=== PATIENT | male | born 2000 | race Native Hawaiian/Other Pacific Islander ===

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

== ENCOUNTER 2018-02-27 21:01 | Inpatient (IN) ==
[2018-02-27] MEDS ORDERED: Sod Chloride 0.9% Inj 1,000 ML IV.SIG ONE ×2 (22:19→23:23)
[2018-02-27] MEDS ORDERED: Ibuprofen 600 MG Tablet PO ONE (22:19)
[2018-02-27 22:47] LABS: Baso # (Auto) 0.1 th/mm3 (0.0-0.2); Baso % (Auto) 1.1 % (0.0-2.0); Eos % (Auto) 0.4 % (0.0-4.0); Hematocrit 42.2 % (39.0-51.0); Hemoglobin 14.3 gm/dL (13.0-17.0); Lymph # (Auto) 1.8 th/mm3 (1.0-4.8); Lymph % (Auto) 18.8 % (9.0-44.0); Mean Corpuscular Hemoglobin 27.4 pg (27.0-34.0); Mean Corpuscular Volume 80.7 fL (80.0-100.0); Mean Platelet Volume 8.8 fL (7.0-11.0); Mono # (Auto) 1.2 th/mm3 (0.0-0.9); Mono % (Auto) 12.5 % (0.0-8.0); Neut # (Auto) 6.5 th/mm3 (1.8-7.7); Neut % (Auto) 67.2 % (16.0-70.0); Platelet Count 191 th/mm3 (150-450); Red Blood Count 5.22 mil/mm3 (4.50-5.90); Red Cell Distribution Width 12.7 % (11.6-17.2); White Blood Count 9.6 th/mm3 (4.0-11.0)
--- NOTE | 2018-02-27 22:51 | ED ---
HPI General Chief complaint: Fever Stated complaint: coughing up blood and cold chills Time Seen by Provider: 02/28/18 00:38 Source: patient and RN notes reviewed Mode of arrival: ambulatory History of Present Illness HPI narrative: 17yM presenting with fever, chills, cough, and near-syncope. The patient states that he's had a cough productive of yellow/ green sputum for the past 4-5 days, now blood-tinged, associated with tactile fevers/ chills and "cold sweats". Today he was at work when he began to feel "like I was burning up ", was trying to place a box on a tall shelf, and felt "like I was going to pass out". He denies LOC but reports malaise and fatigue. Admits to nausea, denies vomiting, abdominal pain, diarrhea, dysuria, or rash. 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 No known recent sick contacts or travel. Family history significant for an uncle with AICD placed in his early 40s, unclear diagnosis. Related Data Home Medications Medication Instructions Recorded Confirmed ssa-AP-AS-acetaminophen-guaifn 2 cap PO Q4-6H 02/27/18 02/27/18 [Tylenol Cold-Flu Severe Day-Nt] Allergies Allergy/AdvReac Type Severity Reaction Status Date / Time No Known Allergies Allergy Unverified 02/27/18 22:11 Review of Systems ROS: all other systems reviewed are negative Constitutional Reports chills and Reports fever(s) Eyes Denies blurry vision ENT Reports sore throat Cardiovascular Denies chest pain Respiratory Reports cough Gastrointestinal Denies abdominal pain Genitourinary Denies dysuria Musculoskeletal Denies back pain Neurologic Denies confusion Psychiatric Denies confusion PMFSH History History Provided By: Patient Medical History Medical History Aphthous stomatitis (Acute) Bronchitis (Acute) Chlamydia (Acute) Surgical History Surgical History No history of previous surgery (Acute) Social History Social History Substance History: No History of Abuse Second Hand Smoke Exposure: No Smoking Status: Former smoker Tobacco Type: Cigarettes How Often Do You Have a Drink Containing Alcohol: Never Recent Travel in [facility] within the Last 8 Weeks: No Recent Out of Country Travel within the Last 8 Weeks: No Immunization History Tetanus Immunization: <5 Years Tetanus Immunization Year if Known: 2017 Exam Const General: healthy appearing and no acute distress [facility] Head: normocephalic and atraumatic Face and sinus: normal facial exam Other: Multiple aphthous ulcers to tongue, soft palate, buccal mucosa Uvula midline Tonsils erythematous, minimally enlarged, no exudate No anterior chain cervical adenopathy Eyes General: appearance normal, both eyes and all related structures Pupils: PERRL Chest Chest: normal inspection of the chest Resp Other: Lungs clear to auscultation bilaterally Normal work of breathing, no respiratory distress Non-productive cough noted during exam Cardio Rate: regular rate Rhythm: regular rhythm GI Inspection: non-distended Palpation: soft and nontender Skin General: no rashes or lesions noted Neuro General: alert, awake, oriented x3 and no focal motor deficits Psych Affect: normal affect Course Consultations Consultation #1: Patient reports 2nd near-syncopal episode while getting 2 view CXR. EKG concerning for possible Brugada syndrome. Case discussed with Dr. Buckner of cardiology; plan is to re-evaluate after anti-pyretics/ IV fluids and if still having presyncopal symptoms, will keep for observation/ continued cardiac monitoring. If the patient does not have any further symptoms, he can follow up as an outpatient with Dr. Araya for EP evaluation. Time: 23:31 Initial Documented Vital Signs Temperature 100.0 F H 02/27/18 21:15 Pulse Rate 102 H 02/27/18 21:15 Respiratory Rate 18 02/27/18 21:15 Blood Pressure 123/69 02/27/18 21:15 Pulse Oximetry 98 02/27/18 21:15 Last Documented Vital Signs Temperature 101.6 F H 02/27/18 21:46 Pulse Rate 90 02/28/18 00:27 Respiratory Rate 20 02/28/18 00:27 Blood Pressure 112/54 L 02/28/18 00:27 Pulse Oximetry 97 02/28/18 00:27 Sign Out Sign Out Data: Patient Sign Out occurred on 02/28/18 at 00:38. Patient's care was discussed, and care was transferred from Chloé jN DO to Sultana Britt. Sign Out Comment: Pending rapid strep/ IV fluids/ re-eval Last updated by Chloé Nj DO at 02/27/18 23:39 Post-Handoff Eval: The patient's rapid strep screen is negative. He is being admitted to observation for further evaluation of possible Brugada syndrome. Medical Decision Making MDM Narrative Medical decision making narrative: Assessment: 17yM presenting with fever, chills, sore throat, cough, near-syncope Plan: EKG IV fluids, antipyretics Labs Rapid strep CXR Medical Screen Exam Complete: Yes Emergency Medical Condition: Yes Differential Diagnosis Differential Diagnosis: Differential diagnosis includes, but is not limited to: viral syndrome, dehydration, electrolyte abnormality, pneumonia, pharyngitis, arrhythmia Lab Data Result diagrams: 02/27/18 22:40 02/27/18 22:40 Lab Results 02/27/18 02/27/18 Range/Units 22:40 22:40 CBC w Diff Auto diff final WBC 9.6 (4.0-11.0) th/mm3 RBC 5.22 (4.50-5.90) mil/mm3 Hgb 14.3 (13.0-17.0) gm/dL Hct 42.2 (39.0-51.0) % MCV 80.7 (80.0-100.0) fL MCH 27.4 (27.0-34.0) pg MCHC 34.0 (32.0-36.0) % RDW 12.7 (11.6-17.2) % Plt Count 191 (150-450) th/mm3 MPV 8.8 (7.0-11.0) fL Neut % (Auto) 67.2 (16.0-70.0) % Lymph % (Auto) 18.8 (9.0-44.0) % [place] % (Auto) 12.5 H (0.0-8.0) % Eos % (Auto) 0.4 (0.0-4.0) % Baso % (Auto) 1.1 (0.0-2.0) % Neut # (Auto) 6.5 (1.8-7.7) th/mm3 Lymph # (Auto) 1.8 (1.0-4.8) th/mm3 [place] # (Auto) 1.2 H (0.0-0.9) th/mm3 Eos # (Auto) 0.0 (0.0-0.4) th/mm3 Baso # (Auto) 0.1 (0.0-0.2) th/mm3 WBC Differential . Differential Comment . Sodium 136 (136-145) meq/L Potassium 3.8 (3.5-5.1) meq/L Chloride 104 (98-107) meq/L Carbon Dioxide 26.4 (21.0-32.0) meq/L Anion Gap 6 (5-15) meq/L BUN 10 (7-18) mg/dL Creatinine 0.98 (0.60-1.30) mg/dL Estimated GFR Greater than 89 (>89) mL/min Random Glucose 91 (74-106) mg/dL Calcium 8.3 L (8.5-10.1) mg/dL Imaging Data Radiologist's impression: Chest X-Ray 02/27/18 22:19 CONCLUSION: No evidence of acute cardiopulmonary disease. ECG Data Attestation: I personally reviewed and interpreted this ECG as follows: Interpretation: Rate: 100 BPM Rhythm: Sinus [place]: Normal Intervals: QTc 372 ms Q waves: None T waves: Upright, no inversions ST segments: J point elevation in V2, V3, "saddleback" appearance of ST segment in V2 Impression: ? Type 3 Brugada pattern, no previous EKG available for comparison. Discharge Plan Discharge Disposition Patient Disposition: 30 Still Patient Discharge Details Diagnosis: Viral infection, Brugada syndrome Physicians Team ED Provider: Sultana Britt Primary Care Provider: Primary Care Shivani Norton Rxs /Orders / Referrals /Forms Prescriptions: No Action mjx-VR-DT-acetaminophen-guaifn [Tylenol Cold-Flu Severe Day-Nt] 2-5-10-325- 200 mg (day/night) Tablets, Sequential 2 cap PO Q4-6H RF: 0 Referrals: Sagar Araya MD [Physician] - Call for Appointment (For cardiology evaluation of abnormal EKG and near-syncopal episodes) Discharge Interventions Interventions: Vital Signs Last Done: 02/28/18 00:27 Status ED Status: With Doctor
[2018-02-27 22:59] LABS: Chloride 104 meq/L (98-107); Potassium 3.8 meq/L (3.5-5.1); Sodium 136 meq/L (136-145)
[2018-02-27 23:01] LABS: Calcium 8.3 mg/dL (8.5-10.1)
[2018-02-27 23:02] LABS: Anion Gap 6 meq/L (5-15); Blood Urea Nitrogen 10 mg/dL (7-18); Carbon Dioxide 26.4 meq/L (21.0-32.0); Glucose,Random 91 mg/dL (74-106)
--- NOTE | 2018-02-27 23:02 | XR ---
EXAM DATE: 02/27/2018 10:57 PM EDT AGE/SEX: 17 years / Male INDICATIONS: . Coughing blood, dizzy. Please rule out infiltrate. CLINICAL DATA: This is the patient's initial encounter. Patient reports that signs and symptoms have been present for 1 week and indicates a pain score of 0/10. MEDICAL/SURGICAL HISTORY: None. None. COMPARISON: No prior exams available for comparison. FINDINGS: PA and lateral views of the chest demonstrate the lungs to be symmetrically aerated without evidence of mass, infiltrate or effusion. The cardiomediastinal contours are unremarkable. Osseous structures are intact. CONCLUSION: No evidence of acute cardiopulmonary disease. Electronically signed by: Truman Kovacs MD 02/27/2018 11:00 PM EDT
[2018-02-27 23:05] LABS: Glomerular Filtration Rate Greater Than 89 mL/min (>89)
[2018-02-27] MEDS ORDERED: Acetaminophen 325 MG Tablet PO ONE (23:16)
[2018-02-27] MEDS ORDERED: Lidocaine/Diphenhyd/Alum-Mag Hydrox/Simeth Mouthwash (Ped) 60 ML Bottle SWISH-SWAL ONE (23:37)
[2018-02-28] MEDS ORDERED: Bisacodyl 10 MG Supp RECTAL PRN (00:59)
[2018-02-28] MEDS: Sod Chloride 0.9% Inj 1,000 ML IV.CONT SCH ×3 (04:27→21:58)
[2018-02-28] MEDS: Nystatin/Diphenhydramine/Lidocaine Mouthwash (Adult) 120 ML Botttle SWISH-SWAL SCH ×2 (04:28→08:20)
[2018-02-28 07:18] LABS: Baso % (Auto) 0.5 % (0.0-2.0); Eos % (Auto) 0.4 % (0.0-4.0); Hematocrit 44.2 % (39.0-51.0); Lymph # (Auto) 2.4 th/mm3 (1.0-4.8); Lymph % (Auto) 25.8 % (9.0-44.0); Mean Corpuscular Volume 79.5 fL (80.0-100.0); Mean Platelet Volume 9.8 fL (7.0-11.0); Mono # (Auto) 1.3 th/mm3 (0.0-0.9); Mono % (Auto) 13.6 % (0.0-8.0); Neut # (Auto) 5.5 th/mm3 (1.8-7.7); Neut % (Auto) 59.7 % (16.0-70.0); Platelet Count 215 th/mm3 (150-450); Red Blood Count 5.55 mil/mm3 (4.50-5.90); Red Cell Distribution Width 12.9 % (11.6-17.2); White Blood Count 9.2 th/mm3 (4.0-11.0)
[2018-02-28 07:28] LABS: Chloride 110 meq/L (98-107); Potassium 3.7 meq/L (3.5-5.1); Sodium 141 meq/L (136-145)
[2018-02-28 07:31] LABS: Calcium 8.4 mg/dL (8.5-10.1)
[2018-02-28 07:32] LABS: Albumin 3.7 g/dL (3.4-5.0); Anion Gap 4 meq/L (5-15); Blood Urea Nitrogen 10 mg/dL (7-18); Carbon Dioxide 26.7 meq/L (21.0-32.0); Glucose,Random 94 mg/dL (74-106)
[2018-02-28 07:35] LABS: Alanine Aminotransferase 33 U/L (9-52); Aspartate Aminotransferase 21 U/L (15-39); Glomerular Filtration Rate Greater Than 89 mL/min (>89)
[2018-02-28 07:37] LABS: Total Protein 7.8 g/dL (6.4-8.2)
[2018-02-28 07:38] LABS: Alkaline Phosphatase 78 U/L (45-117); Creatine Kinase 116 U/L (39-308)
[2018-02-28] MEDS: Senna/Docusate Sodium 8.6/50 MG Tablet PO SCH ×2 (08:20→22:06)
[2018-02-28] MEDS ORDERED: Menthol 5.8 MG Lozenge BUCCAL PRN (08:35)
[2018-02-28] MEDS: Phenol 1.4% 180 ML Spray Bottle OROPHARYNG PRN ×2 (09:39→17:38)
--- NOTE | 2018-02-28 11:30 | ECG ---
Date Performed: 02/27/2018 Time Performed: 22:30:31 PTAGE: 17 years EKG: SINUS TACHYCARDIA INCOMPLETE RIGHT BUNDLE BRANCH BLOCK ST ELEVATION, PROBABLY EARLY REPOLAR IZATION ABNORMAL RHYTHM ECG NO PREVIOUS TRACING DOCTOR: Ashley Brunson Interpretating Date/Time 02/28/2018 11:28:34
[2018-02-28] MEDS: Acetaminophen 325 MG Tablet PO PRN ×2 (11:41→22:36)
--- NOTE | 2018-02-28 11:50 | P.HP ---
History of Present Illness Primary Care Physician: No Primary Care Physician Chief Complaint: Near-syncope, hemoptysis and chills History of Present Illness: This is a 17-year-old male with no significant past medical history. Who presents to the emergency department because of near syncope, hemoptysis and chills. Patient has been's feeling ill for the past 4-5 days with productive cough of yellow to green sputum now blood-tinged associated with intermittent fever, chills, cold sweats and sore throat. He has been anorexic. He has been taking [id number] medications to no relief. Yesterday while at work he was trying to place a box on a tall shelf and became dizzy and almost passed out. He has been nauseous with shortness of breath and pleuritic chest and abdominal pain from coughing. No UTI symptoms and diarrhea. No sick contacts. He was noted to have abnormal EKG with sinus rhythm, incomplete RBBB J-point elevation in V2 to V3 possible Brugada pattern. Independently reviewed by me. Uncle with chemo-induced heart failure status post AICD placement. Also discussed with cardiology who agrees with echocardiogram and telemetry monitoring. Chest x-ray image independently reviewed by me with no acute cardiopulmonary disease. At this time, patient feels miserable because of feeling cold, intermittent chills, hemoptysis and sore throat. All other systems reviewed negative Review of Systems All other systems reviewed negative except as stated in HPI PMFSH - History History Provided By: Patient - Medical History Medical History: Medical History (Last Reviewed 02/28/18 @ 11:42 by Castro Jones MD) Aphthous stomatitis Bronchitis Chlamydia - Surgical History Surgical History: Surgical History (Last Reviewed 02/28/18 @ 11:42 by Castro Jones MD) No history of previous surgery - Family History Family History: Family History (Last Updated 02/28/18 @ 11:42 by Castro Jones MD) Other No pertinent family history - Tobacco History Second Hand Smoke Exposure: No Tobacco Use In Past 30 Days: No Smoking Status: Former smoker Tobacco Type: Cigarettes - Alcohol History How Often Do You Have a Drink Containing Alcohol: Never - Substance Use History Substance History: No History of Abuse - Travel History Recent Travel in the [place] Within the Last 8 Weeks: No Recent Travel Out of the Country Within the Last 8 Weeks: No - Immunization History Tetanus Immunization: <5 Years Tetanus Immunization Year if Known: 2016 Medications and Allergies Active Medications: Active Medications Acetaminophen (Tylenol) 650 mg PO Q4H PRN PRN Reason: Temp > 100.4 Al Hydroxide/Mg Hydroxide (Milk Of Magnesia Liq) 30 ml PO Q12H PRN PRN Reason: Mild Constipation Bisacodyl (Dulcolax Supp) 10 mg RECTAL DAILY PRN PRN Reason: SEVERE CONSITIPATION Guaifenesin (Mucinex Er) 600 mg PO BID [facility] Guaifenesin/Codeine Phosphate (Robitussin Ac 200/20 Mg/10 Ml Liq) 10 ml PO Q4H PRN PRN Reason: COUGH Sodium Chloride (Ns Inj) 1,000 mls @ 100 mls/hr IV.CONT .Q10H [facility] Last Admin: 02/28/18 04:27 Dose: 100 mls/hr Lactulose (Lactulose Liq) 30 ml PO DAILY PRN PRN Reason: SEVERE CONSITIPATION Menthol ([place]) 1 lozenge BUCCAL Q1H PRN PRN Reason: SORE THROAT Last Admin: 02/28/18 09:41 Dose: 1 lozenge Ondansetron HCl (Zofran Inj) 4 mg IV.PUSH Q6H PRN PRN Reason: NAUSEA OR VOMITING Senna/Docusate Sodium (Tamara-Colace) 1 tab PO BID [facility] Last Admin: 02/28/18 08:20 Dose: Not Given Sennosides (Senokot) 17.2 mg PO Q12H PRN PRN Reason: Moderate Constipation Throat Lozenges (Chloraseptic Glendo) 2 spray OROPHARYNG Q2H PRN PRN Reason: SORE THROAT Last Admin: 02/28/18 09:39 Dose: 2 spray Allergies Allergy/AdvReac Type Severity Reaction Status Date / Time No Known Allergies Allergy Unverified 02/27/18 22:11 Home Medications Medication Instructions Recorded Confirmed Type bow-ZN-PI-acetaminophen-guaifn 2 cap PO Q4-6H 02/27/18 02/27/18 History [Tylenol Cold-Flu Severe Day-Nt] Exam Vital signs: Vital Signs 02/27/18 21:15 02/27/18 21:46 02/27/18 22:01 Temperature 100.0 F H 101.6 F H Pulse Rate 102 H 110 H 101 H Respiratory Rate 18 18 Blood Pressure 123/69 136/77 132/74 Pulse Oximetry 98 98 02/27/18 23:59 02/28/18 00:27 02/28/18 01:01 Temperature 98.4 F Pulse Rate 98 H 90 84 Respiratory Rate 20 18 Blood Pressure 122/74 112/54 L 110/56 L Pulse Oximetry 97 02/28/18 02:35 02/28/18 03:53 02/28/18 04:00 Temperature 98.0 F 97.7 F Pulse Rate 76 70 86 Respiratory Rate 18 20 Blood Pressure 112/72 136/72 Pulse Oximetry 96 02/28/18 08:00 02/28/18 08:20 Temperature 98.8 F Pulse Rate 80 95 H Respiratory Rate 17 Blood Pressure 129/82 Pulse Oximetry 97 Intake & Output 02/27/18 02/28/18 02/28/18 18:59 06:59 18:59 Intake Total 2660 / 2660 Output Total 1100 / 1100 Balance 1560 / 1560 Weight 90.2 kg Intake: IV 1999 NS Inj 1,000 ML @ Wide Open IV. 1999 SIG BOLUS ONE Rx#:[id number] Oral 660 / 660 Output: Urine 1100 / 1100 Other: # Voids 1 Narrative: GENERAL: Well-developed, well-nourished in no distress SKIN: Warm and dry. HEAD: Atraumatic. Normocephalic. EYES: Pupils equal and round. No scleral icterus. No injection or drainage. ENT: No nasal bleeding or discharge. Mucous membranes pink and moist. Multiple aphthous ulcers to the tongue, soft palate and buccal mucosa. NECK: Trachea midline. No JVD. CARDIOVASCULAR: Regular rate and rhythm. RESPIRATORY: No accessory muscle use. Clear to auscultation. Breath sounds equal bilaterally. GASTROINTESTINAL: Abdomen soft, non-tender, nondistended. MUSCULOSKELETAL: Extremities without clubbing, cyanosis, or edema. No obvious deformities. NEUROLOGICAL: Awake and alert. No obvious cranial nerve deficits. Motor grossly within normal limits. Five out of 5 muscle strength in the arms and legs. Normal speech. PSYCHIATRIC: Appropriate mood and affect; insight and judgment normal. Results - Labs CBC & Chem 7: 02/28/18 06:50 02/28/18 06:50 Labs: Laboratory Results - last 24 hr 02/27/18 02/27/18 02/28/18 22:40 22:40 06:50 CBC w Diff Auto diff final Auto diff final WBC 9.6 9.2 RBC 5.22 5.55 Hgb 14.3 15.0 Hct 42.2 44.2 MCV 80.7 79.5 L MCH 27.4 27.0 MCHC 34.0 34.0 RDW 12.7 12.9 Plt Count 191 215 MPV 8.8 9.8 Neut % (Auto) 67.2 59.7 Lymph % (Auto) 18.8 25.8 [place] % (Auto) 12.5 H 13.6 H Eos % (Auto) 0.4 0.4 Baso % (Auto) 1.1 0.5 Neut # (Auto) 6.5 5.5 Lymph # (Auto) 1.8 2.4 [place] # (Auto) 1.2 H 1.3 H Eos # (Auto) 0.0 0.0 Baso # (Auto) 0.1 0.0 WBC Differential . . Differential Comment . . Sodium 136 Potassium 3.8 Chloride 104 Carbon Dioxide 26.4 Anion Gap 6 BUN 10 Creatinine 0.98 Estimated GFR Greater than 89 Random Glucose 91 Calcium 8.3 L Total Bilirubin AST ALT Alkaline Phosphatase Total Creatine Kinase Troponin I Total Protein Albumin 02/28/18 06:50 CBC w Diff WBC RBC Hgb Hct MCV MCH MCHC RDW Plt Count MPV Neut % (Auto) Lymph % (Auto) [place] % (Auto) Eos % (Auto) Baso % (Auto) Neut # (Auto) Lymph # (Auto) [place] # (Auto) Eos # (Auto) Baso # (Auto) WBC Differential Differential Comment Sodium 141 Potassium 3.7 Chloride 110 H Carbon Dioxide 26.7 Anion Gap 4 L BUN 10 Creatinine 0.88 Estimated GFR Greater than 89 Random Glucose 94 Calcium 8.4 L Total Bilirubin 0.5 AST 21 ALT 33 Alkaline Phosphatase 78 Total Creatine Kinase 116 Troponin I Less than 0.02 L Total Protein 7.8 Albumin 3.7 - Imaging Impressions Chest X-Ray 02/27/18 22:19 CONCLUSION: No evidence of acute cardiopulmonary disease. Caprini VTE Risk Assessment Caprini VTE Risk Assessment: No/Low Risk (score <= 1) Caprini Risk Assessment Model: Point Value = 1 Point Value = 2 Point Value = 3 Point Value = 5 Age 41-60 Minor surgery BMI > 25 kg/m2 Swollen legs Varicose veins or History of unexplained or recurrent spontaneous Oral contraceptives or hormone replacement Sepsis (< 1 month) Serious lung disease, including pneumonia (< 1 month) Abnormal pulmonary function Acute myocardial infarction Congestive heart failure (< 1 month) History of inflammatory bowel disease Medical patient at bed rest Age 61-74 Arthroscopic surgery Major open surgery (> 45 min) Laparoscopic surgery (> 45 min) Malignancy Confined to bed (> 72 hours) Immobilizing plaster cast Central venous access Age >= 75 History of VTE Family history of VTE Factor V Leiden Prothrombin [id number] Lupus anticoagulant Anticardiolipin antibodies Elevated serum homocysteine Heparin-induced thrombocytopenia Other congenital or acquired thrombophilia Stroke (< 1 month) Elective arthroplasty Hip, pelvis, or leg fracture Acute spinal cord injury (< 1 month) Prophylaxis Regimen: Total Risk Factor Score Risk Level Prophylaxis Regimen 0-1 Low Early ambulation 2 Moderate Order ONE of the following: *Sequential Compression Device (SCD) *Heparin 5000 units SQ BID 3-4 Higher Order ONE of the following medications: *Heparin 5000 units SQ TID *Enoxaparin/Lovenox 40 mg SQ daily (WT < 150 kg, CrCl > 30 mL/min) *Enoxaparin/Lovenox 30 mg SQ daily (WT < 150 kg, CrCl > 10-29 mL/min) *Enoxaparin/Lovenox 30 mg SQ BID (WT < 150 kg, CrCl > 30 mL/min) AND/OR *Sequential Compression Device (SCD) 5 or more Highest Order ONE of the following medications: *Heparin 5000 units SQ TID (Preferred with Epidurals) *Enoxaparin/Lovenox 40 mg SQ daily (WT < 150 kg, CrCl > 30 mL/min) *Enoxaparin/Lovenox 30 mg SQ daily (WT < 150 kg, CrCl > 10-29 mL/min) *Enoxaparin/Lovenox 30 mg SQ BID (WT < 150 kg, CrCl > 30 mL/min) AND *Sequential Compression Device (SCD) Assessment and Plan - Plan This is a 17-year-old male who presents with fever, chills, cough with hemoptysis, pleuritic pain from coughing, shortness of breath anorexia, sore throat and near-syncope. Patient has no leukocytosis. Strep throat negative. Chest x-ray with out acute cardiopulmonary disease. Likely this is viral syndrome. Obtain flu screen. Symptomatic treatment with antipyretics and analgesics. Trial dexamethasone elixir swish and spit for symptomatic aphthous ulcers. Antitussives include codeine patient has been counseled. Eforcse queried. Monitor hemoptysis if worse consider CT scan of the chest. Ct IV hydration. Possible Brugada pattern. Monitor on telemetry follow-up echocardiogram. Cardiology following Low risk for DVT Discharge Planning: Possible discharge in the morning
[2018-02-28] MEDS: guaiFENesin/Codeine Syrup 200 MG/20 MG 10 ML UDC PO PRN (13:15)
[2018-02-28] MEDS: Ibuprofen 600 MG Tablet PO PRN ×2 (14:46→23:55)
[2018-02-28] MEDS: DEXAMETHASONE OTHER SCH ×3 (14:47→21:37)
--- NOTE | 2018-02-28 19:55 | ECHRPT ---
Indication: CONCLUSIONS Normal left ventricular size. Wall thickness is normal. The left ventricular systolic function is hyperdynamic with an estimated ejection fraction in the ra nge of 65- 70%. There is trace tricuspid valve regurgitation. The estimated pulmonary arterial pressure is 39.4 mmHg. BP: / HR: Rhythm: Sinus MEASUREMENTS (Male / Female) Normal Values Technical Quality:Fair 2D ECHO LV Diastolic Diameter PLAX 5.1 cm 4.2 - 5.9 / 3.9 - 5.3 cm LV Systolic Diameter PLAX 3.4 cm IVS Diastolic Thickness 0.9 cm 0.6 - 1.0 / 0.6 - 0.9 cm LVPW Diastolic Thickness 0.9 cm 0.6 - 1.0 / 0.6 - 0.9 cm LV Relative Wall Thickness 0.3 RV Internal Dim ED PLAX 3.1 cm LVOT Diameter 2.0 cm Aortic Root Diameter 2.5 cm LA Systolic Diameter LX 2.8 cm 3.0 - 4.0 / 2.7 - 3.8 cm M-MODE AV Cusp Separation MM 2.0 cm DOPPLER AV Peak Velocity 135.0 cm/s AV Peak Gradient 7.3 mmHg AV Mean Gradient 4.0 mmHg AV Velocity Time Integral 20.7 cm LVOT Peak Velocity 122.0 cm/s LVOT Peak Gradient 6.0 mmHg LVOT Velocity Time Integral 16.3 cm AV Area Cont Eq vti 2.5 cm AV Area Cont Eq pk 2.8 cm Mitral E Point Velocity 85.9 cm/s Mitral A Point Velocity 57.3 cm/s Mitral E to A Ratio 1.5 LV E' Lateral Velocity 18.6 cm/s Mitral E to LV E' Lateral Ratio 4.6 LV E' Septal Velocity 13.8 cm/s Mitral E to LV E' Septal Ratio 6.2 TR Peak Velocity 271.0 cm/s TR Peak Gradient 29.4 mmHg Right Atrial Pressure 10.0 mmHg Pulmonary Artery Systolic Pressu 39.4 mmHg Right Ventricular Systolic Press 39.4 mmHg PV Peak Velocity 81.2 cm/s PV Peak Gradient 2.6 mmHg FINDINGS LEFT VENTRICLE Normal left ventricular size. Wall thickness is normal. The left ventricular systolic function is hyperdynamic with an estimated ejection fraction in the ra nge of 65- 70%. RIGHT VENTRICLE Normal right ventricular size and systolic function. LEFT ATRIUM The left atrial size is normal. RIGHT ATRIUM The right atrial size is normal. ATRIAL SEPTUM The interatrial septum not well visualized. AORTA The aortic root and proximal ascending aorta are normal in size on limited imaging. MITRAL VALVE Structurally normal mitral valve. No mitral valve stenosis or regurgitation. AORTIC VALVE Trileaflet aortic valve. No aortic valve stenosis or regurgitation. TRICUSPID VALVE There is trace tricuspid valve regurgitation. The estimated pulmonary arterial pressure is 39.4 mmHg. PULMONARY VALVE No pulmonary valve regurgitation or stenosis. VESSELS The inferior vena cava is normal in size. PERICARDIUM No pericardial effusion. Frandy Roldan MD, FACC, [facility] [place] Edited by: lead database administrator lead database administrator (Electronically Signed) Final Date:28 February 2018 16:27 Amended: 28 February 2018 19:55
--- NOTE | 2018-02-28 20:09 | MB ---
cc: Dipak Buckner DO DATE: 02/28/2018 REASON FOR CONSULTATION: Abnormal EKG. HISTORY OF PRESENT ILLNESS: Roni Castillo is a pleasant 17-year-old male who [facility] to [facility] due to hemoptysis, chills and near syncope. He states that for the past 4-5 days, he has had a productive cough of yellow to green sputum which has blood-tinged discoloration. He has also had intermittent fevers, chills and cold sweats. He has been taking [id number] medications with no relief. He was at work yesterday and he was trying to place boxes on the top shelf and started becoming slightly dizzy and caught himself. He never passed out. EKG was done on arrival and I was called on the night of his admission as there was a concern for a possible Brugada pattern on his EKG. In discussing with him and his mom, he has had no palpitations or syncopal episodes. He does have an uncle who had an AICD placed in his 40s, but this was due to chemotherapy-induced cardiomyopathy. Unfortunately, he and his mother have no idea about family history on the father's side of the family. In seeing him, he is currently hemodynamically stable without chest pain or shortness of breath. PAST MEDICAL HISTORY: 1. Aphthous stomatitis. 2. Bronchitis. 3. Chlamydia. PAST SURGICAL HISTORY: Denies. ALLERGIES: NO KNOWN DRUG ALLERGIES. MEDICATIONS: Denies. FAMILY HISTORY: Uncle with a history of chemotherapy-induced cardiomyopathy requiring an AICD. Denies sudden cardiac within the family on the mother's side. Unknown history on the father's side. SOCIAL HISTORY: The patient is a former smoker. Denies alcohol or drug abuse. REVIEW OF SYSTEMS: Fourteen systems were reviewed including osteopathic. Pertinent positives and negatives above, otherwise negative. PHYSICAL EXAMINATION: VITAL SIGNS: Temperature 101.0, heart rate 109, blood pressure 129/65, respirations 16, pulse oximetry 97% on room air. GENERAL: The patient appears well, in no acute distress, alert, awake and oriented x 3. HEENT: Extraocular muscles intact. Mucous membranes moist. NECK: Supple. No JVD at 45 degrees. No carotid bruits heard bilaterally. Carotid upstroke is brisk in nature. HEART: Regular rate and rhythm. Positive first and second heart sounds with no noted murmurs, gallops or rubs. LUNGS: Clear to auscultation bilaterally. No wheezes, rales or rhonchi. ABDOMEN: Soft, nontender, nondistended. No organomegaly noted. EXTREMITIES: Show no clubbing, cyanosis or edema. Femoral and distal pulses intact bilaterally. NEUROLOGIC: No focal deficits. SKIN: Warm, dry and intact. OSTEOPATHIC: No kyphoscoliosis, lordosis or paraspinal tender points. LABORATORY DATA: Hemoglobin 15.0, hematocrit 44.2, platelets 215. Potassium 3.7, BUN 10, creatinine 0.88. Troponin less than 0.02. Electrocardiogram (02/27/2018 at 2030), sinus tachycardia, incomplete right bundle branch block with mild elevation, consideration of Brugada-type pattern. IMPRESSION: 1. Probable viral illness. 2. Near syncope. 3. Hemoptysis. 4. Electrocardiogram with incomplete right bundle branch block with mild ST elevation, possibly a Brugada-type pattern. RECOMMENDATIONS: 1. Mr. Castillo presented with what appears to be probably a viral illness with hemoptysis, fevers, chills. This will be treated by the primary team. 2. There was concern for his EKG being a Brugada-type pattern. He would not fit the criteria of Brugada syndrome as he has never had any type of events to be caused by this. 3. There is no family history, as far as he knows, of sudden cardiac . His uncle had an AICD placed, but that was for chemotherapy-induced cardiomyopathy. 4. We will check a 2-D echo to look at his overall left ventricular function, cardiac structure and possible valvulopathies. 5. Ultimately, he needs a followup with his primary care physician or cardiology for further workup including a Holter monitor to evaluate for arrhythmias. 6. Discussed with Dr. Jones. Due to current fevers, we should most likely keep him overnight and watch him on telemetry to make sure no arrhythmias. 7. He did have a near-syncopal episode, but this is most likely due to the patient not eating for the past few days as well as his current illness. Thank you for allowing me to see Roni Castillo. If there are any questions, please do not hesitate to call. Dipak Buckner DO VGP/jl , 04:46 PM , 04:57 PM
[2018-02-28] MEDS: guaiFENesin 600 MG ER Tablet PO SCH (21:35)
[2018-03-01] MEDS: guaiFENesin/Codeine Syrup 200 MG/20 MG 10 ML UDC PO PRN (08:22)
[2018-03-01] MEDS: Sod Chloride 0.9% Inj 1,000 ML IV.CONT SCH ×2 (08:22→17:19)
[2018-03-01] MEDS: guaiFENesin 600 MG ER Tablet PO SCH ×2 (08:22→20:55)
[2018-03-01] MEDS: Senna/Docusate Sodium 8.6/50 MG Tablet PO SCH ×2 (08:22→20:55)
[2018-03-01] MEDS: Acetaminophen 325 MG Tablet PO PRN ×2 (08:23→23:45)
[2018-03-01] MEDS: Ibuprofen 600 MG Tablet PO PRN (08:27)
--- NOTE | 2018-03-01 08:57 | P.PN ---
Subjective Interval history: Follow-up viral syndrome and Brugada pattern. Still feeling miserable T-max 101.6. Still having hemoptysis patient spit while being examined showing brownish phlegm with no blood. Physical Exam Vital signs: Vital Signs 02/28/18 11:41 02/28/18 12:00 02/28/18 13:24 Temperature 101.5 F H 101.0 F H 100.8 F H Pulse Rate 109 H Respiratory Rate 16 Blood Pressure 125/65 Pulse Oximetry 97 02/28/18 16:00 02/28/18 20:00 02/28/18 23:55 Temperature 99.6 F 98.8 F 100.6 F H Pulse Rate 92 H 94 H 101 H Respiratory Rate 16 20 18 Blood Pressure 124/81 126/59 L 132/62 Pulse Oximetry 97 97 97 03/01/18 04:00 03/01/18 08:00 Temperature 97.3 F L 100.4 F H Pulse Rate 78 116 H Respiratory Rate 18 20 Blood Pressure 132/79 140/84 Pulse Oximetry 97 98 Intake & Output 02/28/18 03/01/18 03/01/18 18:59 06:59 18:59 Intake Total 1720 / 1720 1500 / 1500 1000 / 1000 Balance 1720 / 1720 1500 / 1500 1000 / 1000 Weight 89 kg Intake: IV 1000 / 1000 1000 / 1000 1000 / 1000 NS Inj 1,000 ML @ 100 mls/hr IV 1000 / 1000 1000 / 1000 1000 / 1000 .CONT .Q10H [facility] Rx#:[id number] Oral 720 / 720 500 / 500 Other: # Voids 4 # Bowel Movements 0 Narrative: GENERAL: Well-developed, well-nourished in no distress SKIN: Warm and dry. ENT: No nasal bleeding or discharge. Mucous membranes pink and moist. Multiple aphthous ulcers to the tongue, soft palate and buccal mucosa. CARDIOVASCULAR: Regular rate and rhythm. RESPIRATORY: No accessory muscle use. Clear to auscultation. Breath sounds equal bilaterally. GASTROINTESTINAL: Abdomen soft, non-tender, nondistended. MUSCULOSKELETAL: Extremities without clubbing, cyanosis, or edema. No obvious deformities. NEUROLOGICAL: Awake and alert. No obvious cranial nerve deficits. Motor grossly within normal limits. Five out of 5 muscle strength in the arms and legs. Normal speech. PSYCHIATRIC: Appropriate mood and affect; insight and judgment normal. Results - Labs CBC & Chem 7: 02/28/18 06:50 02/28/18 06:50 Microbiology 02/28/18 11:53 Nasal Wash Influenza Types A,B Antigen - Final Negative for FLU A and B antigen Infection due to influenza A or B cannot be ruled out since the antigen present in the sample may be below the detection limit of the test. 02/27/18 23:50 Throat Group A Streptococcus Screen/Cult - Preliminary No Beta Streptococci isolated at 24 hours - Imaging ITS Impressions Chest X-Ray 02/27/18 22:19 CONCLUSION: No evidence of acute cardiopulmonary disease. - Procedures none Assessment and Plan - Plan This is a 17-year-old male who presents with fever, chills, cough with hemoptysis, pleuritic pain from coughing, shortness of breath anorexia, sore throat and near-syncope. Patient has no leukocytosis. Strep throat and flu negative. Chest x-ray with out acute cardiopulmonary disease. Likely this is viral syndrome. He is still feeling miserable as expected with viral syndrome. Symptomatic treatment with antipyretics and analgesics. Will make ibuprofen [id number]. Continue dexamethasone elixir swish and spit for symptomatic aphthous ulcers, add sucralfate. Antitussives include codeine which will be also given [id number] with hold parameters patient has been counseled. Eforcse queried. Monitor hemoptysis if worse consider CT scan of the chest. Ct IV hydration. Possible Brugada pattern. Monitor on telemetry which is unremarkable except for tachycardia secondary to above unremarkable echocardiogram. Cardiology following to see Dr. Araya outpatient Low risk for DVT Discharge Planning: Not ready for discharge secondary to fever which will increase the risk for Brugada syndrome
--- NOTE | 2018-03-01 12:31 | P.PNCA ---
Subjective Interval history: Pt without CV complaints Medications and Allergies Active Medications: Active Medications Acetaminophen (Tylenol) 650 mg PO Q4H PRN PRN Reason: Temp > 100.4 Last Admin: 03/01/18 08:23 Dose: 650 mg Al Hydroxide/Mg Hydroxide (Milk Of Magnesia Liq) 30 ml PO Q12H PRN PRN Reason: Mild Constipation Bisacodyl (Dulcolax Supp) 10 mg RECTAL DAILY PRN PRN Reason: SEVERE CONSITIPATION Famotidine (Pepcid) 20 mg PO [facility] Guaifenesin (Mucinex Er) 600 mg PO BID [facility] Last Admin: 03/01/18 08:22 Dose: 600 mg Guaifenesin/Codeine Phosphate (Robitussin Ac 200/20 Mg/10 Ml Liq) 10 ml PO QID [facility] Stop: 03/03/18 08:59 Sodium Chloride (Ns Inj) 1,000 mls @ 100 mls/hr IV.CONT .Q10H [facility] Last Admin: 03/01/18 08:22 Dose: 100 mls/hr Ibuprofen (Motrin) 600 mg PO Q6H [facility] Stop: 03/03/18 08:59 Lactulose (Lactulose Liq) 30 ml PO DAILY PRN PRN Reason: SEVERE CONSITIPATION Menthol ([place]ont) 1 lozenge BUCCAL Q1H PRN PRN Reason: SORE THROAT Last Admin: 02/28/18 09:41 Dose: 1 lozenge Miscellaneous Medication (Misc Compound (Change This Entry)) 0 each OTHER QID [facility] Last Admin: 02/28/18 21:37 Dose: 5 each Ondansetron HCl (Zofran Inj) 4 mg IV.PUSH Q6H PRN PRN Reason: NAUSEA OR VOMITING Last Admin: 02/28/18 23:55 Dose: 4 mg Senna/Docusate Sodium (Tamara-Colace) 1 tab PO BID [facility] Last Admin: 03/01/18 08:22 Dose: 1 tab Sennosides (Senokot) 17.2 mg PO Q12H PRN PRN Reason: Moderate Constipation Sucralfate (Carafate Liq) 1 gm PO QID [facility] Throat Lozenges (Chloraseptic [place]) 2 spray OROPHARYNG Q2H PRN PRN Reason: SORE THROAT Last Admin: 02/28/18 17:38 Dose: 2 spray Allergies Allergy/AdvReac Type Severity Reaction Status Date / Time No Known Allergies Allergy Unverified 02/27/18 22:11 Home Medications Medication Instructions Recorded Confirmed Type [id number]-YY-RQ-acetaminophen-guaifn 2 cap PO Q4-6H 02/27/18 02/27/18 History [Tylenol Cold-Flu Severe Day-Nt] Physical Exam Vital signs: Vital Signs 02/28/18 13:24 02/28/18 16:00 02/28/18 20:00 Temperature 100.8 F H 99.6 F 98.8 F Pulse Rate 92 H 94 H Respiratory Rate 16 20 Blood Pressure 124/81 126/59 L Pulse Oximetry 97 97 02/28/18 23:55 03/01/18 04:00 03/01/18 08:00 Temperature 100.6 F H 97.3 F L 100.4 F H Pulse Rate 101 H 78 116 H Respiratory Rate 18 18 20 Blood Pressure 132/62 132/79 140/84 Pulse Oximetry 97 97 98 Intake & Output 02/28/18 03/01/18 03/01/18 18:59 06:59 18:59 Intake Total 1720 / 1720 1500 / 1500 1550 / 1550 Balance 1720 / 1720 1500 / 1500 1550 / 1550 Weight 89 kg Intake: IV 1000 / 1000 1000 / 1000 1000 / 1000 NS Inj 1,000 ML @ 100 mls/hr IV 1000 / 1000 1000 / 1000 1000 / 1000 .CONT .Q10H [facility] Rx#:[id number] Oral 720 / 720 500 / 500 550 / 550 Other: # Voids 4 # Bowel Movements 0 - Constitutional no acute distress - Routine HEENT Exam Head: Present: normocephalic - Routine Cardiovascular Exam Present: RRR Results 02/28/18 06:50 02/28/18 06:50 Cardiac Enzymes 02/28/18 Range/Units 06:50 AST 21 (15-39) U/L Troponin I Less than 0.02 L (0.02-0.05) ng/mL CBC 02/27/18 02/28/18 Range/Units 22:40 06:50 WBC 9.6 9.2 (4.0-11.0) th/mm3 RBC 5.22 5.55 (4.50-5.90) mil/mm3 Hgb 14.3 15.0 (13.0-17.0) gm/dL Hct 42.2 44.2 (39.0-51.0) % Plt Count 191 215 (150-450) th/mm3 Neut # (Auto) 6.5 5.5 (1.8-7.7) th/mm3 Lymph # (Auto) 1.8 2.4 (1.0-4.8) th/mm3 [place] # (Auto) 1.2 H 1.3 H (0.0-0.9) th/mm3 Eos # (Auto) 0.0 0.0 (0.0-0.4) th/mm3 Baso # (Auto) 0.1 0.0 (0.0-0.2) th/mm3 Comprehensive Metabolic Panel 02/27/18 02/28/18 Range/Units 22:40 06:50 Sodium 136 141 (136-145) meq/L Potassium 3.8 3.7 (3.5-5.1) meq/L Chloride 104 110 H (98-107) meq/L Carbon Dioxide 26.4 26.7 (21.0-32.0) meq/L BUN 10 10 (7-18) mg/dL Creatinine 0.98 0.88 (0.60-1.30) mg/dL Calcium 8.3 L 8.4 L (8.5-10.1) mg/dL AST 21 (15-39) U/L ALT 33 (9-52) U/L Alkaline Phosphatase 78 (45-117) U/L Total Protein 7.8 (6.4-8.2) g/dL Albumin 3.7 (3.4-5.0) g/dL Intake and Output 02/28/18 03/01/18 03/01/18 22:59 06:59 14:59 Intake Total 2220 / 2220 1550 / 1550 Balance 2220 / 2220 1550 / 1550 Intake: IV 1000 / 1000 1000 / 1000 NS Inj 1,000 ML @ 100 mls/hr IV 1000 / 1000 1000 / 1000 .CONT .Q10H [facility] Rx#:[id number] Oral 1220 / 1220 550 / 550 Other: # Voids 4 # Bowel Movements 0 Weight 89 kg - Imaging and Cardiology Imaging: Impressions Chest X-Ray 02/27/18 22:19 CONCLUSION: No evidence of acute cardiopulmonary disease. Echo: other ( Normal left ventricular size and function) Assessment and Plan - Plan CV- EF normal and no significant valve disease Available PRN
[2018-03-01] MEDS: Sucralfate Liq 1 GM/10 ML UDC PO SCH ×4 (13:17→20:56)
[2018-03-01] MEDS: Ibuprofen 600 MG Tablet PO SCH ×3 (13:18→21:01)
[2018-03-01] MEDS: DEXAMETHASONE OTHER SCH ×4 (13:19→22:05)
[2018-03-01] MEDS: Phenol 1.4% 180 ML Spray Bottle OROPHARYNG PRN (13:20)
[2018-03-01] MEDS: guaiFENesin/Codeine Syrup 200 MG/20 MG 10 ML UDC PO SCH ×3 (13:20→20:56)
[2018-03-01] MEDS: Famotidine 20 MG Tablet PO SCH (20:55)
[2018-03-02] MEDS: Ibuprofen 600 MG Tablet PO SCH ×4 (04:32→21:18)
[2018-03-02 07:07] LABS: Baso # (Auto) 0.1 th/mm3 (0.0-0.2); Baso % (Auto) 0.5 % (0.0-2.0); Eos % (Auto) 0.3 % (0.0-4.0); Hematocrit 42.4 % (39.0-51.0); Hemoglobin 14.1 gm/dL (13.0-17.0); Lymph # (Auto) 2.3 th/mm3 (1.0-4.8); Lymph % (Auto) 17.3 % (9.0-44.0); Mean Corpuscular HGB Conc 33.4 % (32.0-36.0); Mean Corpuscular Hemoglobin 27.4 pg (27.0-34.0); Mean Corpuscular Volume 82.2 fL (80.0-100.0); Mean Platelet Volume 8.6 fL (7.0-11.0); Mono # (Auto) 1.1 th/mm3 (0.0-0.9); Mono % (Auto) 8.4 % (0.0-8.0); Neut % (Auto) 73.5 % (16.0-70.0); Platelet Count 178 th/mm3 (150-450); Red Blood Count 5.16 mil/mm3 (4.50-5.90); Red Cell Distribution Width 12.8 % (11.6-17.2); White Blood Count 13.5 th/mm3 (4.0-11.0)
[2018-03-02 07:11] LABS: Chloride 107 meq/L (98-107); Potassium 4.2 meq/L (3.5-5.1); Sodium 139 meq/L (136-145)
[2018-03-02 07:14] LABS: Calcium 8.5 mg/dL (8.5-10.1)
[2018-03-02 07:15] LABS: Anion Gap 6 meq/L (5-15); Blood Urea Nitrogen 6 mg/dL (7-18); Carbon Dioxide 26.2 meq/L (21.0-32.0); Glucose,Random 93 mg/dL (74-106); Magnesium 1.9 mg/dL (1.5-2.5)
[2018-03-02 07:18] LABS: Glomerular Filtration Rate Greater Than 89 mL/min (>89)
[2018-03-02] MEDS: DEXAMETHASONE OTHER SCH ×4 (08:16→21:18)
[2018-03-02] MEDS: Sucralfate Liq 1 GM/10 ML UDC PO SCH ×4 (08:16→22:58)
[2018-03-02] MEDS: Senna/Docusate Sodium 8.6/50 MG Tablet PO SCH ×2 (08:17→21:18)
[2018-03-02] MEDS: guaiFENesin 600 MG ER Tablet PO SCH ×2 (08:17→21:18)
[2018-03-02] MEDS: guaiFENesin/Codeine Syrup 200 MG/20 MG 10 ML UDC PO SCH ×4 (08:17→20:26)
--- NOTE | 2018-03-02 09:26 | P.PN ---
Subjective Interval history: Follow-up fever. States he is feeling better T-max 101. Still with hemoptysis. Physical Exam Vital signs: Vital Signs 03/01/18 12:00 03/01/18 16:00 03/01/18 20:00 Temperature 98.3 F 99.8 F H 99.4 F Pulse Rate 83 94 H 116 H Respiratory Rate 18 20 18 Blood Pressure 119/67 130/69 136/64 Pulse Oximetry 95 99 97 03/02/18 00:00 03/02/18 04:00 03/02/18 08:34 Temperature 101.1 F H 96.8 F L 101.1 F H Pulse Rate 101 H 77 111 H Respiratory Rate 18 18 14 Blood Pressure 127/59 L 128/78 131/74 Pulse Oximetry 95 95 95 Intake & Output 03/01/18 03/02/18 03/02/18 18:59 06:59 18:59 Intake Total 2550 / 2550 1999 Balance 2550 / 2550 1999 Weight 89 kg Intake: IV 1999 1000 / 1000 NS Inj 1,000 ML @ 100 mls/hr IV 1999 1000 / 1000 .CONT .Q10H [facility] Rx#:[id number] Oral 550 / 550 1000 / 1000 Other: # Voids 3 Narrative: GENERAL: Well-developed, well-nourished in no distress SKIN: Warm and dry. ENT: No nasal bleeding or discharge. Mucous membranes pink and moist. Multiple aphthous ulcers to the tongue, soft palate and buccal mucosa. CARDIOVASCULAR: Regular rate and rhythm. RESPIRATORY: No accessory muscle use. Clear to auscultation. Breath sounds equal bilaterally. GASTROINTESTINAL: Abdomen soft, non-tender, nondistended. MUSCULOSKELETAL: Extremities without clubbing, cyanosis, or edema. No obvious deformities. NEUROLOGICAL: Awake and alert. No obvious cranial nerve deficits. Motor grossly within normal limits. Five out of 5 muscle strength in the arms and legs. Normal speech. PSYCHIATRIC: Appropriate mood and affect; insight and judgment normal. Results - Labs CBC & Chem 7: 03/02/18 06:45 03/02/18 06:45 Laboratory Results - last 24 hr 03/02/18 03/02/18 06:45 06:45 CBC w Diff Auto diff final WBC 13.5 H RBC 5.16 Hgb 14.1 Hct 42.4 MCV 82.2 MCH 27.4 MCHC 33.4 RDW 12.8 Plt Count 178 MPV 8.6 Neut % (Auto) 73.5 H Lymph % (Auto) 17.3 [place] % (Auto) 8.4 H Eos % (Auto) 0.3 Baso % (Auto) 0.5 Neut # (Auto) 10.0 H Lymph # (Auto) 2.3 [place] # (Auto) 1.1 H Eos # (Auto) 0.0 Baso # (Auto) 0.1 WBC Differential . Differential Comment . Sodium 139 Potassium 4.2 Chloride 107 Carbon Dioxide 26.2 Anion Gap 6 BUN 6 L Creatinine 0.89 Estimated GFR Greater than 89 Random Glucose 93 Calcium 8.5 Magnesium 1.9 Microbiology 02/27/18 23:50 Throat Group A Streptococcus Screen/Cult - Final No Beta Streptococci isolated. - Imaging ITS Impressions Chest X-Ray 02/27/18 22:19 CONCLUSION: No evidence of acute cardiopulmonary disease. Chest CT 03/02/18 00:00 CONCLUSION: 1. Scattered nonspecific bilateral pulmonary infiltrates suspicious for bilateral pneumonia. - Procedures none Assessment and Plan - Plan This is a 17-year-old male who presents with fever, chills, cough with hemoptysis, pleuritic pain from coughing, shortness of breath anorexia, sore throat and near-syncope. Patient has no leukocytosis. Strep throat and flu negative. Chest x-ray with out acute cardiopulmonary disease. Initially thought to be viral syndrome but developed leukocytosis and chest CT shows bilateral infiltrates suspicious for pneumonia. He has sepsis. Stop blood cultures and start IV Rocephin and p.o. Zithromax obtain sputum culture, pneumococcal and Legionella urinary antigen. Symptomatic treatment with antipyretics and analgesics. Will make ibuprofen [id number]. Continue dexamethasone elixir swish and spit for symptomatic aphthous ulcers, add sucralfate. Antitussives include codeine which will be also given round-the- clock with hold parameters patient has been counseled. Eforcse queried. Ct IV hydration. Possible Brugada pattern. Monitor on telemetry which is unremarkable except for tachycardia secondary to above unremarkable echocardiogram. Cardiology following to see Dr. Araya outpatient Low risk for DVT Discharge Planning: Not ready for discharge secondary to fever which will increase the risk for Brugada syndrome
[2018-03-02] MEDS: Acetaminophen 325 MG Tablet PO PRN (10:04)
--- NOTE | 2018-03-02 11:21 | CT ---
EXAM DATE: 03/02/2018 10:46 AM EDT AGE/SEX: 17 years / Male INDICATIONS: Hemoptysis. CLINICAL DATA: This is the patient's initial encounter. Patient reports that signs and symptoms have been present for 1 week and indicates a pain score of 0/10. MEDICAL/SURGICAL HISTORY: None. None. RADIATION DOSE: 9.75 CTDI (mGy) COMPARISON: [facility], CHEST 2V PA&LAT, 02/27/2018. . TECHNIQUE: Multiple contiguous axial images were obtained through the chest without contrast. Image s were obtained in suspended respiration using multiple row detector helical technique. Using automa giuliano exposure control and adjustment of the mA and/or kV according to patient size, radiation dose was kept as low as reasonably achievable to obtain optimal diagnostic quality images. DICOM format imag e data is available electronically for review and comparison. FINDINGS: Lungs: There are scattered nonspecific infiltrates noted in the posterior right upper lung, posterio r right lower lung and posterior left lower lung in a pattern that suggests an inflammatory process s uch as pneumonia. Mediastinum: There is good visualization of the great vessels of the middle mediastinum. No evidenc e of mediastinal or hilar adenopathy/mass. Pleurae: No evidence of focal thickening or pleural effusion. Axillae: Unremarkable. Bony Structures: Unremarkable. Miscellaneous: The examination was extended to include the upper abdomen, and both adrenal glands ar e normal in size and configuration. CONCLUSION: 1. Scattered nonspecific bilateral pulmonary infiltrates suspicious for bilateral pneumonia. Electronically signed by: Shan Hutson MD 03/02/2018 11:19 AM EDT
[2018-03-02] MEDS ORDERED: Azithromycin 250 MG Tablet PO ONE (12:19)
[2018-03-02] MEDS: Famotidine 20 MG Tablet PO SCH (21:18)
[2018-03-03] MEDS: Ibuprofen 600 MG Tablet PO SCH (03:07)
[2018-03-03 06:36] LABS: Baso # (Auto) 0.1 th/mm3 (0.0-0.2); Baso % (Auto) 0.6 % (0.0-2.0); Eos # (Auto) 0.1 th/mm3 (0.0-0.4); Eos % (Auto) 0.6 % (0.0-4.0); Hematocrit 39.7 % (39.0-51.0); Hemoglobin 13.3 gm/dL (13.0-17.0); Lymph # (Auto) 2.4 th/mm3 (1.0-4.8); Lymph % (Auto) 28.3 % (9.0-44.0); Mean Corpuscular HGB Conc 33.4 % (32.0-36.0); Mean Corpuscular Hemoglobin 27.5 pg (27.0-34.0); Mean Corpuscular Volume 82.3 fL (80.0-100.0); Mean Platelet Volume 8.9 fL (7.0-11.0); Mono # (Auto) 0.7 th/mm3 (0.0-0.9); Mono % (Auto) 8.2 % (0.0-8.0); Neut # (Auto) 5.3 th/mm3 (1.8-7.7); Neut % (Auto) 62.3 % (16.0-70.0); Platelet Count 176 th/mm3 (150-450); Red Blood Count 4.82 mil/mm3 (4.50-5.90); Red Cell Distribution Width 12.6 % (11.6-17.2); White Blood Count 8.6 th/mm3 (4.0-11.0)
[2018-03-03] MEDS: Senna/Docusate Sodium 8.6/50 MG Tablet PO SCH ×2 (08:35→20:49)
[2018-03-03] MEDS: Azithromycin 250 MG Tablet PO SCH (08:35)
[2018-03-03] MEDS: guaiFENesin 600 MG ER Tablet PO SCH ×2 (08:35→20:49)
[2018-03-03] MEDS: Sucralfate Liq 1 GM/10 ML UDC PO SCH ×4 (08:35→22:35)
[2018-03-03] MEDS: DEXAMETHASONE OTHER SCH (08:38)
[2018-03-03] MEDS: Sod Chloride 0.9% Inj 1,000 ML IV.CONT SCH (10:58)
[2018-03-03 12:34] VITALS: RESP 20
[2018-03-03] MEDS: DEXAMETHASONE 0.5 MG/5 ML OTHER SCH ×3 (12:51→20:50)
[2018-03-03] MEDS ORDERED: DEXAMETHASONE PO SCH ×3 (13:00)
--- NOTE | 2018-03-03 13:58 | P.PNIM ---
Subjective Interval history: Persistent cough remains. Following on telemetry due to arrhythmia history. No fevers overnight. Physical Exam Vital signs: Vital Signs 03/02/18 17:20 03/02/18 20:00 03/03/18 00:00 Temperature 97.9 F 97.9 F 96.8 F L Pulse Rate 78 72 64 Respiratory Rate 14 20 20 Blood Pressure 127/60 132/65 107/65 Pulse Oximetry 97 98 97 03/03/18 08:00 03/03/18 12:00 Temperature 98.1 F 97.3 F L Pulse Rate 66 64 Respiratory Rate 21 20 Blood Pressure 130/81 127/62 Pulse Oximetry 98 98 Intake & Output 03/02/18 03/03/18 03/03/18 18:59 06:59 18:59 Intake Total 1300 / 1300 340 / 340 Output Total 300 / 300 Balance 1300 / 1300 40 / 40 Weight 89 kg Intake: IV 100 / 100 100 / 100 Rocephin Inj 1,000 MG In NS Inj 100 / 100 100 / 100 100 ML @ 200 mls/hr IV.SIG Q24H [facility] Rx#:[id number] Oral 1200 / 1200 240 / 240 Output: Urine 300 / 300 Other: # Voids 4 1 Date of Last Bowel Movement 03/02/18 Narrative: GENERAL: NAD, A&Ox3 HEAD: Normocephalic. NECK: Supple, trachea midline. No lymphadenopathy. EYES: No scleral icterus. No injection or drainage. CARDIOVASCULAR: Regular rate and rhythm without murmurs, gallops, or rubs. RESPIRATORY: Breath sounds equal bilaterally. No accessory muscle use. GASTROINTESTINAL: Abdomen soft, non-tender, nondistended. MUSCULOSKELETAL: No cyanosis, or edema. SKIN: Warm and dry. NEURO: No focal neurological deficits. Results - Labs CBC & Chem 7: 03/03/18 05:30 03/02/18 06:45 Laboratory Results - last 24 hr 03/03/18 05:30 CBC w Diff Auto diff final WBC 8.6 RBC 4.82 Hgb 13.3 Hct 39.7 MCV 82.3 MCH 27.5 MCHC 33.4 RDW 12.6 Plt Count 176 MPV 8.9 Neut % (Auto) 62.3 Lymph % (Auto) 28.3 [place] % (Auto) 8.2 H Eos % (Auto) 0.6 Baso % (Auto) 0.6 Neut # (Auto) 5.3 Lymph # (Auto) 2.4 [place] # (Auto) 0.7 Eos # (Auto) 0.1 Baso # (Auto) 0.1 WBC Differential . Differential Comment . Microbiology 03/02/18 13:50 Blood - Peripheral Aerobic Blood Culture - Preliminary No growth in 1 day 03/02/18 13:50 Blood - Peripheral Anaerobic Blood Culture - Preliminary No growth in 1 day 03/02/18 13:59 Blood - Peripheral Aerobic Blood Culture - Preliminary No growth in 1 day 03/02/18 13:59 Blood - Peripheral Anaerobic Blood Culture - Preliminary No growth in 1 day 03/02/18 22:45 Sputum - Expectorated Sputum Gram Stain - Final 03/02/18 22:45 Urine - Clean Catch Urine Streptococcus pneumoniae Antigen ( M - Final Presumptive negative for streptococcus pneumoniae antigen, suggesting no current or recent infection. Infection due to Streptococcus pneumoniae cannot be ruled out since the antigen present in the sample may be below the detection limit of the test. 03/02/18 22:45 Urine - Clean Catch Urine Legionella Antigen - Final Presumptive negative for Legionella pneumophila serogroup 1 antigen in urine, suggesting no recent or recurrent infection. Infection due to Legionella cannot be ruled out since other serogroups and species may cause disease, antigen may not be present in urine in early infection, and the level of antigen present in the urine may be below the detection limit of the test. - Procedures none Assessment and Plan - Plan 17-year-old male with suspected Brugada syndrome. Admitted secondary to symptomatic pneumonia. Community-acquired pneumonia Continue Rocephin Continue with Zithromax Follow clinically for improvement PRN antitussives Continue dexamethasone Sepsis Resolved Possible Brugada syndrome Follow on telemetry for stability If stable through tomorrow we will consider discharge Continue to follow with cardiology as an outpatient Low risk for DVT Discharge Planning: If stable through tomorrow we will consider discharge
[2018-03-03] MEDS: guaiFENesin/Codeine Syrup 200 MG/20 MG 10 ML UDC PO PRN ×3 (14:00→21:56)
[2018-03-03 20:12] VITALS: O2SAT 97
[2018-03-03] MEDS: Famotidine 20 MG Tablet PO SCH (20:49)
[2018-03-04] MEDS: guaiFENesin/Codeine Syrup 200 MG/20 MG 10 ML UDC PO PRN (05:06)
[2018-03-04 06:04] LABS: Baso % (Auto) 0.2 % (0.0-2.0); Eos % (Auto) 0.5 % (0.0-4.0); Hematocrit 39.5 % (39.0-51.0); Hemoglobin 13.3 gm/dL (13.0-17.0); Lymph # (Auto) 2.6 th/mm3 (1.0-4.8); Lymph % (Auto) 30.8 % (9.0-44.0); Mean Corpuscular HGB Conc 33.6 % (32.0-36.0); Mean Corpuscular Hemoglobin 27.6 pg (27.0-34.0); Mean Corpuscular Volume 82.3 fL (80.0-100.0); Mean Platelet Volume 9.1 fL (7.0-11.0); Mono # (Auto) 0.7 th/mm3 (0.0-0.9); Mono % (Auto) 7.7 % (0.0-8.0); Neut # (Auto) 5.2 th/mm3 (1.8-7.7); Neut % (Auto) 60.8 % (16.0-70.0); Platelet Count 219 th/mm3 (150-450); Red Cell Distribution Width 12.5 % (11.6-17.2); White Blood Count 8.5 th/mm3 (4.0-11.0)
[2018-03-04 06:22] LABS: Chloride 106 meq/L (98-107); Potassium 3.5 meq/L (3.5-5.1); Sodium 140 meq/L (136-145)
[2018-03-04 06:34] LABS: Calcium 8.7 mg/dL (8.5-10.1)
[2018-03-04 06:35] LABS: Albumin 3.3 g/dL (3.4-5.0); Anion Gap 8 meq/L (5-15); Blood Urea Nitrogen 9 mg/dL (7-18); Carbon Dioxide 25.8 meq/L (21.0-32.0); Glucose,Random 100 mg/dL (74-106)
[2018-03-04 06:38] LABS: Alanine Aminotransferase 35 U/L (9-52); Aspartate Aminotransferase 19 U/L (15-39); Glomerular Filtration Rate Greater Than 89 mL/min (>89)
[2018-03-04 06:40] LABS: Total Protein 7.9 g/dL (6.4-8.2)
[2018-03-04 06:41] LABS: Alkaline Phosphatase 64 U/L (45-117)
[2018-03-04 08:21] VITALS: BP 114/59; TEMP 96.2
[2018-03-04] MEDS: Senna/Docusate Sodium 8.6/50 MG Tablet PO SCH (08:38)
[2018-03-04] MEDS: guaiFENesin 600 MG ER Tablet PO SCH (08:39)
[2018-03-04] MEDS: Azithromycin 250 MG Tablet PO SCH (08:39)
[2018-03-04] MEDS: Sucralfate Liq 1 GM/10 ML UDC PO SCH (08:41)
[2018-03-04] MEDS: DEXAMETHASONE 0.5 MG/5 ML OTHER SCH (08:42)
[2018-03-04 09:10] VITALS: PULSE 57
--- NOTE | 2018-03-04 10:52 | P.DS ---
Date of admission: 03/02/18 14:12 Primary care physician: No Primary Care Physician Brief History from admission: This is a 17-year-old male with no significant past medical history. Who presents to the emergency department because of near syncope, hemoptysis and chills. Patient has been's feeling ill for the past 4-5 days with productive cough of yellow to green sputum now blood-tinged associated with intermittent fever, chills, cold sweats and sore throat. He has been anorexic. He has been taking samr-apn-emtfhax medications to no relief. Yesterday while at work he was trying to place a box on a tall shelf and became dizzy and almost passed out. He has been nauseous with shortness of breath and pleuritic chest and abdominal pain from coughing. No UTI symptoms and diarrhea. No sick contacts. He was noted to have abnormal EKG with sinus rhythm, incomplete RBBB J-point elevation in V2 to V3 possible Brugada pattern. Independently reviewed by me. Uncle with chemo-induced heart failure status post AICD placement. Also discussed with cardiology who agrees with echocardiogram and telemetry monitoring. Chest x-ray image independently reviewed by me with no acute cardiopulmonary disease. At this time, patient feels miserable because of feeling cold, intermittent chills, hemoptysis and sore throat. All other systems reviewed negative DS: Medications - Discharge Medications Prescriptions: azithromycin 250 mg PO DAILY #6 tab cefuroxime axetil 500 mg PO Q12H #12 tab codeine-guaifenesin 5 ml PO Q4H PRN #120 ml PRN Reason: Cough Lactobacillus acidophilus 500 mmu cells PO TID #30 cap sucralfate 1 gm PO QID #300 ml DS: Summary Hospital Course: Mr. Castillo is a 17-year-old male. He has a past history of cardiac arrhythmia and Brugada pattern. He was admitted secondary to oxygen and respiratory distress, this was discovered to be pneumonia. Patient was treated for sepsis with pneumonia. He has recovered well on antibiotics. Fevers have resolved 48 hours ago at this point. He was monitored on telemetry due to some arrhythmia which was occurring when he was septic/febrile. No further cardiac arrhythmias at this point. Patient medically stable and cleared for discharge. He will discharged on continuation of antibiotics and with probiotics. - Time Spent with Patient Total time spent providing and/or coordinating discharge services: Less than 30 minutes - Quality: VTE Deep Vein Thrombosis/Pulmonary Embolism Present on Admission: No Exam Vital signs: Vital Signs 03/03/18 12:00 03/03/18 16:00 03/03/18 17:48 Temperature 97.3 F L 97.9 F Pulse Rate 64 84 92 H Respiratory Rate 20 20 Blood Pressure 127/62 122/57 L Pulse Oximetry 98 98 03/03/18 20:00 03/03/18 22:50 03/04/18 00:00 Temperature 97.8 F 97.9 F Pulse Rate 78 76 74 Respiratory Rate 20 20 Blood Pressure 123/62 126/58 L Pulse Oximetry 97 97 03/04/18 04:00 03/04/18 08:00 03/04/18 09:08 Temperature 96.9 F L 96.2 F L Pulse Rate 62 56 L 57 L Respiratory Rate 20 20 Blood Pressure 121/56 L 114/59 L Pulse Oximetry 97 97 Intake & Output 03/03/18 03/04/18 03/04/18 18:59 06:59 18:59 Intake Total 340 / 340 1999 Output Total 300 / 300 Balance 40 / 40 1999 Weight 90.2 kg Intake: IV 100 / 100 Rocephin Inj 1,000 MG In NS Inj 100 / 100 100 ML @ 200 mls/hr IV.SIG Q24H EULALIA Rx#:[id number] Oral 240 / 240 1999 Output: Urine 300 / 300 Other: # Voids 5 Date of Last Bowel Movement 03/02/18 03/02/18 Results Procedures completed during hospitalization: none Labs on day of discharge: Labs from last 24 hours 03/04/18 03/04/18 05:05 05:05 CBC w Diff Auto diff final WBC 8.5 RBC 4.80 Hgb 13.3 Hct 39.5 MCV 82.3 MCH 27.6 MCHC 33.6 RDW 12.5 Plt Count 219 MPV 9.1 Neut % (Auto) 60.8 Lymph % (Auto) 30.8 [place] % (Auto) 7.7 Eos % (Auto) 0.5 Baso % (Auto) 0.2 Neut # (Auto) 5.2 Lymph # (Auto) 2.6 [place] # (Auto) 0.7 Eos # (Auto) 0.0 Baso # (Auto) 0.0 WBC Differential . Differential Comment . Sodium 140 Potassium 3.5 Chloride 106 Carbon Dioxide 25.8 Anion Gap 8 BUN 9 Creatinine 0.77 Estimated GFR Greater than 89 Random Glucose 100 Calcium 8.7 Total Bilirubin 0.3 AST 19 ALT 35 Alkaline Phosphatase 64 Total Protein 7.9 Albumin 3.3 L Preliminary micro results at discharge 03/02/18 22:45 Sputum Culture - Preliminary Sputum - Expectorated Sputum Moderate growth normal respiratory mary jane at 24 hours 03/02/18 13:50 Aerobic Blood Culture - Preliminary Blood - Peripheral No growth in 1 day Anaerobic Blood Culture - Preliminary No growth in 1 day 03/02/18 13:59 Aerobic Blood Culture - Preliminary Blood - Peripheral No growth in 1 day Anaerobic Blood Culture - Preliminary No growth in 1 day - Impressions ITS Impressions Chest X-Ray 02/27/18 22:19 CONCLUSION: No evidence of acute cardiopulmonary disease. Chest CT 03/02/18 00:00 CONCLUSION: 1. Scattered nonspecific bilateral pulmonary infiltrates suspicious for bilateral pneumonia. Discharge Plan - Discharge Disposition Patient Disposition: Discharge Home - Discharge Condition Condition: Stable - Discharge Order Discharge Orders: Discharge Order (Routine); Ordered 03/04/18 Ordered By: Hermilo Lind - Discharge Details Anticipated Discharge Date: 03/04/18 Discharge Comment: Dc if afebrile - Physicians Team Primary Care Provider: Primary Care Physici,No Attending Provider: Hermilo Lind Other Providers: Dipak Buckner DO
== END 2018-03-04 10:10 | disposition home or self-care (01) ==
LOC: PHEDA 21:01 → PHED 21:01 → PH3 02-28 02:45
PROVIDERS: ADMIT Hospitalist; ATTEND Hospitalist